=== PATIENT | female | born 1950 | race Two or more races ===

== ENCOUNTER 2019-01-29 08:22 | Inpatient (IN) | payer OTHER ==
[~2019-01-29] VITALS: Ht 157.5 cm; Wt 81.2 kg
[~2019-01-29 08:22] MED LIST: BAYER ADVANCED500 MG; GRALISE1 EACH; HUMALOG100 UNIT/1; LANTUS SOL100 UNIT/1; TOPROL XL50 M1
--- NOTE | 2019-01-29 08:29 | NUR ---
PACIENTE ALERTA Y ORIENTADA X3 CON DIFICULTAD RESPRIATORIA, LLEGA DE SETHI HOGAR EN AMBULANCIA CON NON REBREATHING SATURANDO AL MOMENTO AL 98% AL MOMENTO CHERYL SIN FAMILIARES, DR. BLACKBURN ORDENA COLOCAR PACIENTE EN AREA DE CHEST PAIN Y SE COMIENZAN A EJECUTAR ORDENES VERBALES DE EMERGENCIA PARA LA PACIENTE AL MOMENTO ESTA TOL[place] MEDICO ORDENADO, PACIENTE AL MOMENTO CON DIFICULTAD RESPIRATORIA MARCADA, SE CONECTA BAJO OBSERVACION CONTINUA DE MONITOR CARDIACO, SIGNOS VITALES Y OXIMETRIA DE PULSO. SE CONTINUA MONITOREANDO POR CAMBIOS SIGNIFICATIVOS, PACIENTE AL MOMENTO HEMODINAMICAMENTE ESTABLE DENTRO DE SETHI CONDICION.
--- NOTE | 2019-01-29 09:19 | NUR ---
SE ORIENTA A PACIENTE SOBRE ORDENES MEDICAS. SE ADMINISTRAN MEDICAMENTOS, CANALIZA PACIENTE Y COLECTAN MUESTRAS DE LABORATORIO ORDENADAS BAJO MEDIDAS ASEPTICAS. AREA DE CANALIZACION PATENTE, REGINA DE EDEMA Y/O ENROJECIMIENTO RECIBIENDO TRIDIL 50MG/250ML @3ML/HR. SONDA URINARIA A GRAVEDAD INSERTADA; PRESENTANDO 250 ML ORINA AMARILLO HARMAN. MR NILSA (TERAPIA RESPIRATORIA) REALIZA ABG Y PRESENTA A DR BLACKBURN. PACIENTE CONTINUA CON NON-REBREATHING COLOCADA. LE REALIZAN PLACA PORTABLE. SE MANTIENE BAJO OBSERVACION POR CAMBIOS.
--- NOTE | 2019-01-29 10:52 | NUR ---
1030 MR NILSA (TERAPIA RESPIRATORIA) REALIZA ABG Y PRESENTA RESULTADOS A DR BLACKBURN. COLOCA CANULA NASAL A 3LTS DEBRA ORDENADO.
--- NOTE | 2019-01-29 15:35 | NUR ---
SE RECIBE FEMINA ALERTA Y ORIENTADA POR CHRIS ESFERAS, EN DONG CON BARANDAS ELEVADAS Y SEGURAS. EN COMPANIA DE FAMILIAR. TIMBRE DE EMERGENCIAS ACCESIBLE. CONECTADA A MONITOR CARDIACO CON OXIMETRIA DE PULSO. CANALIZADA EN BRAZO DERECHO X2 CON AREA DE VENOPUNCIONES LIBRES DE EDEMA O ENROJECIMIENTO. RECIBIENDO TRIDIL 50MG/250ML @ 3ML/HR. JENKINS PATENTE DRENANDO ORINA COLOR AMARILLO HARMAN. ABDOMEN BLANDO A LA PALPACION CON PERISTALSIS PRESENTE. DR. Ariella HOU PASA VISITA A PACIENTE.
--- NOTE | 2019-01-29 16:33 | NUR ---
SE LLAMA A DR. EVETTE HOU PARA NOTIFICAR QUE PACIENTE PRESENTA 210/110 MMHG DE PRESION ARTERIAL. DR. EVETTE HOU ORDENA QUE SE AUMENTE RATE DE TRIDIL 50MG/250ML A 5 ML/HR Y SI PACIENTE CONTINUA CON PRESION ARTERIAL ELEVADA AUMETAR EL RATE A 7 ML/HR.
== END 2019-02-03 12:58 | disposition designated cancer center or children's hospital (05) | DRG 280 ==
LOC: ER 08:22 → ICU-2 18:33
PROVIDERS: ADMIT Internal Medicine
PROC: B246ZZZ Ultrasonography of Right and Left Heart (ICD-10-PCS; principal; 2019-01-29)
PROC: 4A033R1 Measurement of Arterial Saturation, Peripheral, Percutaneous Approach (ICD-10-PCS; 2019-01-29)
DX: I13.0 Hypertensive heart and chronic kidney disease with heart failure and stage 1 through stage 4 chronic kidney disease, or unspecified chronic kidney disease (principal); I21.4 Non-ST elevation (NSTEMI) myocardial infarction; I50.23 Acute on chronic systolic (congestive) heart failure; N17.8 Other acute kidney failure; E11.65 Type 2 diabetes mellitus with hyperglycemia; N18.9 Chronic kidney disease, unspecified; E78.49 Other hyperlipidemia

== ENCOUNTER 2023-11-06 07:30 | Emergency (ER) | payer OTHER ==
[~2023-11-06] VITALS: Ht 154.9 cm; Wt 70.8 kg
[2023-11-06] MEDS ORDERED: DICLOFENAC SODI75 MG PO (10:16)
== END 2023-11-06 10:24 | disposition home or self-care (01) ==
LOC: ER 07:30
DX: S22.42XA Multiple fractures of ribs, left side, initial encounter for closed fracture (principal); W18.39XA Other fall on same level, initial encounter; Y93.K1 Activity, walking an animal; Y92.89 Other specified places as the place of occurrence of the external cause; Y99.9 Unspecified external cause status; E11.9 Type 2 diabetes mellitus without complications; Z79.4 Long term (current) use of insulin; I10 Essential (primary) hypertension